=== PATIENT | male | born 1985 | race Caucasian/White ===

== ENCOUNTER 2017-10-04 15:55 | Emergency (ER) | payer BC ==
--- NOTE | 2017-10-04 16:39 | EDM.PDOC ---
ED HPI GENERAL MEDICAL PROBLEM - General Chief Complaint: Back Pain or Injury Stated Complaint: BACK PAIN Time Seen by Provider: 10/04/17 16:04 Source of Information: Reports: Patient History Limitations: Reports: No Limitations - History of Present Illness INITIAL COMMENTS - FREE TEXT/NARRATIVE: HISTORY AND PHYSICAL: History of present illness: Patient is a 32-year-old male who presents to the emergency room today with complaints of back pain with sciatica down the right gluteus. He states he has chronic back pain over the past 10 years and intermittently uses muscle relaxers , narcotic pain medication and anti-inflammatories for pain management. He states that his primary care provider in [place] has recently done a CT scan and does show some small compression fractures. Today he was resting in a chair and sneeze and "threw my back out". Denies any recent injury or trauma. Review of systems: As per history of present illness and below otherwise all systems reviewed and negative. Past medical history: As per history of present illness and as reviewed below otherwise noncontributory. Surgical history: As per history of present illness and as reviewed below otherwise noncontributory. Social history: No reported history of drug or alcohol abuse. Family history: As per history of present illness and as reviewed below otherwise noncontributory. Physical exam: General: Well-developed and well-nourished 32-year-old male. Alert and oriented. Nontoxic appearing and in no acute distress. HEENT: Atraumatic, normocephalic, pupils equal and reactive bilaterally, negative for conjunctival pallor or scleral icterus, mucous membranes moist, throat clear, neck supple, nontender, trachea midline. No drooling or trismus noted. No meningeal signs Lungs: Clear to auscultation, breath sounds equal bilaterally, chest nontender. Heart: S1S2, regular rate and rhythm without overt murmur Abdomen: Soft, nondistended, nontender. Negative for masses or hepatosplenomegaly. Negative for costovertebral tenderness. Pelvis: Stable nontender. Genitourinary: Deferred. Rectal: Deferred. Skin: Intact, warm, dry. No lesions or rashes noted. C-spine/Back: No pinpoint vertebral tenderness upon palpation. No crepitus, step -offs or obvious deformities noted. Patient is able to stand on his toes and walk on his heels without difficulty. Deep tendon reflexes intact. No urinary or fecal incontinence. Denies any numbness or tingling to his distal extremities. Extremities: Atraumatic, moves all extremities per self without difficulty or deficits, negative for cords or calf pain. Neurovascular unremarkable. Neuro: Awake, alert, oriented. Cranial nerves II through XII unremarkable. Cerebellum unremarkable. Motor and sensory unremarkable throughout. Exam nonfocal. Notes: Pain appears musculature in nature. Starts mid thoracic back and does go down the side stopping at the glute. Patient declines repeat x-ray at this time. He states he does have Lortab at home. I did offer him medication while he is here but he is driving himself. We'll give him a prescription for Flexeril and diclofenac. Medication education was given area and he voices understanding and is agreeable to plan of care. He denies any further questions at this time. Diagnostics: Declines Therapeutics: Declines Impression: Back pain with sciatica Plan: 1. Please take your medications as directed. Flexeril may cause drowsiness so do not take it will driving her needing to be functioning outside of the house. Do not take any additional NSAID such as ibuprofen or Aleve while taking the diclofenac. Please take with food. You may take Tylenol for breakthrough pain. 2. Gentle stretching. 3. Please follow-up with your primary care provider next week in [place] as you have stated. Return to the ED as needed and as discussed. Definitive disposition and diagnosis as appropriate pending reevaluation and review of above. - Related Data Allergies Allergy/AdvReac Type Severity Reaction Status Date / Time No Known Allergies Allergy Verified 10/04/17 16:21 Home Meds: Home Meds . [No Known Home Meds] 10/04/17 [History] Past Medical History Musculoskeletal History: Reports: Back Pain, Chronic - Infectious Disease History Infectious Disease History: Reports: Chicken Pox Social & Family History - Family History Family Medical History: Noncontributory - Tobacco Use Smoking Status *Q: Current Every Day Smoker Years of Tobacco use: 10 Packs/Tins Daily: 0.3 - Caffeine Use Caffeine Use: Reports: Soda - Alcohol Use Days Per Week of Alcohol Use: 1 Number of Drinks Per Day: 3 Total Drinks Per Week: 3 - Recreational Drug Use Recreational Drug Use: No ED ROS GENERAL - Review of Systems Review Of Systems: ROS reveals no pertinent complaints other than HPI. ED EXAM,LOWER BACK PAIN/INJURY - Physical Exam Exam: See Below (See dictation) Course - Vital Signs Last Recorded V/S: Last Vital Signs Temp 97.8 F 10/04/17 16:22 Pulse 90 10/04/17 16:22 Resp 16 10/04/17 16:22 BP 141/94 H 10/04/17 16:22 Pulse Ox 98 10/04/17 16:22 Departure - Departure Time of Disposition: 16:38 Disposition: Home, Self-Care 01 Clinical Impression: Back pain with left-sided sciatica - Discharge Information Instructions: Back Pain, Adult, [id number] Referrals: PCP,None [Primary Care Provider] - Additional Instructions: The following information is given to patients seen in the emergency department who are being discharged to home. This information is to outline your options for follow-up care. We provide all patients seen in our emergency department with a follow-up referral. The need for follow-up, as well as the timing and circumstances, are variable depending upon the specifics of your emergency department visit. If you don't have a primary care physician on staff, we will provide you with a referral. We always advise you to contact your personal physician following an emergency department visit to inform them of the circumstance of the visit and for follow-up with them and/or the need for any referrals to a consulting specialist. The emergency department will also refer you to a specialist when appropriate. This referral assures that you have the opportunity for follow-up care with a specialist. All of these measure are taken in an effort to provide you with optimal care, which includes your follow-up. Under all circumstances we always encourage you to contact your private physician who remains a resource for coordinating your care. When calling for follow-up care, please make the office aware that this follow-up is from your recent emergency room visit. If for any reason you are refused follow-up, please contact the [facility] Emergency Department at and asked to speak to the emergency department charge nurse. [facility] [address] [place] [id number] 1. Please take your medications as directed. Flexeril may cause drowsiness so do not take it will driving her needing to be functioning outside of the house. Do not take any additional NSAID such as ibuprofen or Aleve while taking the diclofenac. Please take with food. You may take Tylenol for breakthrough pain. 2. Gentle stretching. 3. Please follow-up with your primary care provider next week in [place] as you have stated. Return to the ED as needed and as discussed.
== END 2017-10-04 17:00 | disposition home or self-care (01) ==
LOC: MW.ED 15:55
DX: M54.32 Sciatica, left side (principal); F17.210 Nicotine dependence, cigarettes, uncomplicated
CPT/HCPCS: 99282; 99283